=== PATIENT | male | born 1980 | race Caucasian/White ===

== ENCOUNTER 2019-01-27 08:48 | Emergency (ER) | payer BC ==
--- NOTE | 2019-01-27 09:12 | ED ---
GI/ HPI - HPI Summary HPI Summary: A 38 y/o male presents to [facility] with a chief complaint of intermittent bilateral testicular pain over the past few weeks. He states that his pain is never unbearable but it is uncomfortable. At triage he rated his pain as a 4/10 in severity. He reports that his pain is worsened with touch. He denies any back pain, fever, or discharge, but notes that the feeling of needing to urinate has become more urgent and has urine has become more smelly. The patient came from Urgent care where he reports that it was thought he may have epididymitis, so he was sent to the ED for an ultrasound. - History of Current Complaint Chief Complaint: EDUrogenitalProblems Time Seen by Provider: 01/27/19 09:05 Stated Complaint: "TESTICULAR PAIN PER PT COMING FROM [facility]" Hx Obtained From: Patient Onset/Duration: Started Weeks Ago, Still Present Timing: Intermittent Severity: Moderate Current Severity: Moderate Pain Intensity: 4 - out of 10 Additional Locations for Males: Testicles Pain Characteristics: Other: - discomfort Associated Signs and Symptoms: Positive: Other: - increased urgency and smelly urine. Negative: Back Pain, Fever Aggravating Factor(s): Palpation Alleviating Factor(s): Nothing - Allergy/Home Medications Allergies/Adverse Reactions: Allergies Allergy/AdvReac Type Severity Reaction Status Date / Time No Known Allergies Allergy Verified 01/27/19 08:54 Home Medications: Home Medications NK [No Home Medications Reported] 01/27/19 [History Confirmed 01/27/19] PMH/Surg Hx/FS Hx/Imm Hx Sensory History: Denies: Hx Deafness EENT History: Denies: Hx Deafness Infectious Disease History: No Infectious Disease History: Denies: Traveled Outside the [place] in Last 30 Days - Family History Known Family History: Positive: Cardiac Disease, Diabetes - Social History Alcohol Use: Weekly Alcohol Amount: 4-5 times weekly Substance Use Type: Reports: None Smoking Status (MU): Never Smoked Tobacco Review of Systems Negative: Fever Positive: pain - testicular, urgency, other - positive: smelly urine. Negative : discharge Negative: Myalgia - back pain All Other Systems Reviewed And Are Negative: Yes Physical Exam - Summary Physical Exam Summary: Appearance: The patient is well-nourished in no acute distress and in no acute pain. Skin: The skin is warm and dry and skin color reflects adequate perfusion. HEENT: The head is normocephalic and atraumatic. The pupils are equal and reactive. The conjunctivae are clear and without drainage. Nares are patent and without drainage. Mouth reveals moist mucous membranes and the throat is without erythema and exudate. The external ears are intact. The ear canals are patent and without drainage. The tympanic membranes are intact. Neck: The neck is supple with full range of motion and non-tender. There are no carotid bruits. There is no neck vein distension. Respiratory: Chest is non-tender. Lungs are clear to auscultation and breath sounds are symmetrical and equal. Cardiovascular: Heart is regular rate and rhythm. There is no murmur or rub auscultated. There is no peripheral edema and pulses are symmetrical and equal. Abdomen: The abdomen is soft and non-tender. There are normal bowel sounds heard in all four quadrants and there is no organomegaly palpated. Musculoskeletal: There is no back tenderness noted. Extremities are non-tender with full range of motion. There is good capillary refill. There is no peripheral edema or calf tenderness elicited. Neurological: Patient is alert and oriented to person, place and time. The patient has symmetrical motor strength in all four extremities. Cranial nerves are grossly intact. Deep tendon reflexes are symmetrical and equal in all four extremities. Psychiatric: The patient has an appropriate affect and does not exhibit any anxiety or depression. Triage Information Reviewed: Yes Vital Signs On Initial Exam: Initial Vitals Temp Pulse Resp BP Pulse Ox 98.0 F 96 16 190/105 99 01/27/19 08:49 01/27/19 08:49 01/27/19 08:49 01/27/19 08:49 01/27/19 08:49 Vital Signs Reviewed: Yes Diagnostics - Vital Signs Vital Signs Temp Pulse Resp BP Pulse Ox 01/27/19 08:49 98.0 F 96 16 190/105 99 - Laboratory Lab Statement: Any lab studies that have been ordered have been reviewed, and results considered in the medical decision making process. - Ultrasound No standard instances Ultrasound Interpretation Completed By: Radiologist Summary of Ultrasound Findings: Testicular ultrasound impression: 1. NO EVIDENCE FOR TESTICULAR TORSION OR EPIDIDYMITIS. 2. SMALL BILATERAL HYDROCELES. 3. SMALL LEFT VARICOCELE. ED physician has reviewed this imaging report. GIGU Course/Dx - Course Course Of Treatment: Mr. Evans presented to the emergency department complaining of mild bilateral testicular pain that has been waxing and waning for couple of weeks. He denies any discharge. He has one partner. He does have a little bit of dysuria associated with it. His exam was generally unremarkable and ultrasound of his testicle showed only mild bilateral hydroceles and a varicocele. This may or may not be the source of his pain but I think anything dangerous happening at this time and I recommended symptomatic treatment and follow-up with urology. - Diagnoses Provider Diagnoses: Testicular pain Discharge - Sign-Out/Discharge Documenting (check all that apply): Patient Departure - DC Patient Received Moderate/Deep Sedation with Procedure: No - Discharge Plan Condition: Stable Disposition: HOME Patient Education Materials: Hydrocele (ED), Testicle Pain (ED) Referrals: [facility] [place] PHYSICIAN REFERRAL [Outside] (2-3 days) Axel Hua MD [Medical Doctor] - Additional Instructions: Return to the ED if you experience any new or worsening symptoms. - Billing Disposition and Condition Condition: STABLE Disposition: Home - Attestation Statements Document Initiated by Scribe: Yes Documenting Scribe: Aram Lopez Provider For Whom Scribe is Documenting (Include Credential): Martín Bardales MD Scribe Attestation: I, Aram Lopez, scribed for Martín Bardales MD on 01/27/19 at 1319. Scribe Documentation Reviewed: Yes Provider Attestation: The documentation as recorded by the Aram cassidy accurately reflects the service I personally performed and the decisions made by me, Martín Bardales MD Status of Scribe Document: Viewed
[2019-01-27 09:15] LABS: Urine Appearance Clear; Urine Bilirubin Negative (Negative); Urine Blood Negative (Negative); Urine Color Straw; Urine Glucose Negative (Negative); Urine Ketones Negative (Negative); Urine Nitrite Negative (Negative); Urine Protein Negative (Negative); Urine Specific Gravity 1.005 (1.010-1.030); Urine Urobilinogen Negative (Negative)
[2019-01-27 11:55] VITALS: BP 190/82
== END 2019-01-27 11:54 | disposition home or self-care (01) ==
LOC: ED 08:48
DX: N50.812 Left testicular pain (principal); N50.811 Right testicular pain; N43.3 Hydrocele, unspecified; I86.1 Scrotal varices
CPT/HCPCS: 76870; 81003; 99282